=== PATIENT | female | born 1955 | race African-American/Black ===

== ENCOUNTER 2025-03-02 11:13 | Outpatient (CLI) | payer OTHER ==
[2025-03-02 12:30] LABS: Urine Protein, UAD Negative (Negative)
[2025-03-02 12:40] LABS: Hematocrit 37.7 % (36.0-46.0); Hemoglobin 12.5 g/dL (12.2-16.2); Mean Corpuscular Hemoglobin 26.8 pg (28.0-32.0); Mean Corpuscular Volume 80.9 fL (80.0-100.0); Nucleated Red Blood Cells % 0.1 %
[2025-03-02 12:46] LABS: Alanine Aminotransferase 18 U/L (7-40); Albumin 4.6 g/dL (3.2-4.8); Alkaline Phosphatase 75 U/L (46-116); Anion Gap 10 (5-15); BUN/Creatinine Ratio 9.1 (10.0-20.0); Calcium 9.4 mg/dL (8.7-10.4); Carbon Dioxide 27 mmol/L (20-31); Chloride 106 mmol/L (98-107); Glucose 87 mg/dL (74-106); Potassium 4.1 mmol/L (3.5-5.1); Sodium 143 mmol/L (136-145); Total Protein 7.8 g/dL (5.7-8.2)
[2025-03-02 12:47] LABS: Bilirubin, Total 0.5 mg/dL (0.2-1.0)
[2025-03-02 12:48] LABS: Blood Urea Nitrogen 9 mg/dL (9-23)
[2025-03-02 14:21] LABS: Triglycerides 140 mg/dL (< 150)
[2025-03-02 14:22] LABS: HDL Cholesterol 54 mg/dL (40-59)
[2025-03-02 14:25] LABS: Cholesterol 290 mg/dL (< 200)
== END 2025-03-02 17:00 | disposition home or self-care (01) ==
LOC: LAB 11:13
PROVIDERS: ATTEND Internal Medicine Hematology & Oncology
DX: I10 Essential (primary) hypertension (principal); E78.5 Hyperlipidemia, unspecified
CPT/HCPCS: 36415; 80053; 80061; 81001; 82306; 83036; 84443; 85025

== ENCOUNTER 2025-04-16 10:36 | Inpatient (IN) | payer OTHER ==
[~2025-04-16] VITALS: Ht 170.2 cm; Wt 71.9 kg
[2025-04-16 13:29] LABS: Hemoglobin 11.9 g/dL (12.2-16.2); Nucleated Red Blood Cells % 0.0 %
[2025-04-16 13:30] LABS: Hematocrit 36.8 % (36.0-46.0); Mean Corpuscular Hemoglobin 26.0 pg (28.0-32.0); Mean Corpuscular Volume 80.8 fL (80.0-100.0)
[2025-04-16 13:38] LABS: Chloride 104 mmol/L (98-107); Potassium 3.8 mmol/L (3.5-5.1); Sodium 139 mmol/L (136-145)
[2025-04-16 13:39] LABS: Anion Gap 10 (5-15); Carbon Dioxide 25 mmol/L (20-31)
[2025-04-16] MEDS: MORPHINE SULFATE 4 MG/ML SYR/VIAL IV ONE (13:39)
[2025-04-16 13:40] LABS: Calcium 9.4 mg/dL (8.7-10.4)
[2025-04-16] MEDS: ONDANSETRON HCL 4 MG/2 ML VIAL IV ONE (13:40)
[2025-04-16] MEDS: SODIUM CHLORIDE 0.9% 1,000 ML IV ONE (13:40)
[2025-04-16 13:44] LABS: BUN/Creatinine Ratio 9.2 (10.0-20.0); Blood Urea Nitrogen 9 mg/dL (9-23); Glucose 92 mg/dL (74-106)
--- NOTE | 2025-04-16 14:33 | ED.PDOC ---
History of Present Illness HPI Comments 69-year-old female presents with chief complaint of nonradiating, LLQ abdominal pain and constipation x2 weeks. Patient reports pain being constant. She states on having, occasional, bowel movements but has been straining and producing small stools. Additional onset of nausea vomiting, last night, reported. No endorse recent prior ailments, sick contacts, travel, or further acute symptoms. Chief Complaint: Constipation Time Seen by MD: 12:30 Primary Care Provider: BACK PAIN Reviewed Notes: Nurses Notes, Medications, Allergies Allergies: Coded Allergies: NO KNOWN ALLERGIES (Unverified , 12/22/15) Information Source: Patient Mode of Arrival: Ambulatory Severity: Moderate Timing: Weeks Duration: Since onset Prehospital treatment: None Past Medical History PAST MEDICAL HISTORY: Denies Surgical History: Denies all surgeries SPRAYER MACHINE History: No Pertinent SPRAYER MACHINE History Family History Family History: Unknown Social History Smoker: Non-Smoker Alcohol: Denies ETOH Use Drugs: Denies Drug Use Lives In: Home All Other Systems: Reviewed and Negative (Comprehensive review of systems are negative unless otherwise stated in HPI) Physical Exam General Appearance: No Apparent Distress, Normal HEENT: Normal ENT Inspection, Pharynx Normal, TMs Normal Neck: Full Range of Motion, Non-Tender, Normal, Normal Inspection Respiratory: Chest Non-Tender, Lungs Clear, No Accessory Muscle Use, No Res piratory Distress, Normal Breath Sounds Cardiovascular: No Edema, No JVD, No Murmur, No Gallop, Normal Peripheral Pulses, Regular Rate/Rhythm Breast Exam: Deferred Gastrointestinal: LLQ (Tenderness), No Organomegaly, Non Tender, No Pulsatile Mass, Normal Bowel Sounds, Soft, Tenderness (LLQ tenderness) Genitalia: Deferred Pelvic: Deferred Rectal: Deferred Extremities: No calf tenderness, Normal capillary refill, Normal inspection, Normal range of motion, Non-tender, No pedal edema Musculoskeletal : Apperance: Normal Neurologic: Alert, inspector chief II-XII nml as Tested, No Motor Deficits, Normal Affect, Normal Mood, No Sensory Deficits Cerebellar Function: Normal Reflexes: Normal Skin: Dry, Normal Color, Warm Lymphatic: No Adenopathy Was a procedure done? Was a procedure done?: No Differential Dx Considerations may include: Constipation, diverticulosis, diverticulitis, ovarian cyst, ovarian torsion, PID, musculoskeletal pain, gastritis, gastroenteritis, viral, dehydration, electrolyte imbalance, among others X-Ray, Labs, Meds, VS Vital Signs Date Time Temp Pulse Resp B/P (MAP) Pulse Ox O2 Delivery O2 Flow Rate FiO2 04/16/25 13:39 90 16 141/72 04/16/25 10:38 98.1 98 18 136/87 98 98.1 Lab Test 04/16/25 13:08 Range/Units White Blood Count 10.4 4.4-10.8 10^3/uL Red Blood Count 4.55 4.0-5.20 10^6/uL Hemoglobin 11.9 L 12.2-16.2 g/dL Hematocrit 36.8 36.0-46.0 % Mean Corpuscular Volume 80.8 80.0-100.0 fL Mean Corpuscular Hemoglobin 26.0 L 28.0-32.0 pg Mean Corpuscular Hemoglobin Concent 32.2 32.0-36.0 g/dL Red Cell Distribution Width 14.5 H 11.8-14.3 % Platelet Count 433 140-450 10^3/uL Mean Platelet Volume 7.2 6.9-10.8 fL Neutrophils (%) (Auto) 77.3 37.0-80.0 % Lymphocytes (%) (Auto) 16.0 10.0-50.0 % Monocytes (%) (Auto) 5.7 0.0-12.0 % Eosinophils (%) (Auto) 0.5 0.0-7.0 % Basophils (%) (Auto) 0.5 0.0-2.0 % Neutrophils # (Auto) 8.0 1.6-8.6 10 ^3/uL Lymphocytes # (Auto) 1.7 0.4-5.4 10 ^3/uL Monocytes # (Auto) 0.6 0-1.3 10 ^3/uL Eosinophils # (Auto) 0.1 0-0.8 10 ^3/uL Basophils # (Auto) 0 0-0.2 10 ^3/uL Nucleated Red Blood Cells 0.0 % Sodium Level 139 136-145 mmol/L Potassium Level 3.8 3.5-5.1 mmol/L Chloride Level 104 98-107 mmol/L Carbon Dioxide Level 25 20-31 mmol/L Anion Gap 10 5-15 Blood Urea Nitrogen 9 9-23 mg/dL Creatinine 0.98 0.550-1.02 mg/dL Glomerular Filtration Rate Calc 62 >90 mL/min BUN/Creatinine Ratio 9.2 L 10.0-20.0 Serum Glucose 92 74-106 mg/dL Calcium Level 9.4 8.7-10.4 mg/dL Current Medications Medications (Trade) Dose Ordered Sig/Abilio Route Start Time Stop Time Status Last Admin Sodium Chloride 1,000 ml @ 1,000 mls/hr Q1H ONCE IV 04/16/25 12:45 04/16/25 13:44 DC 04/16/25 13:40 Ondansetron HCl (Zofran) 4 mg ONCE ONCE IV 04/16/25 12:45 04/16/25 12:46 DC 04/16/25 13:40 Morphine Sulfate 4 mg ONCE ONCE IV 04/16/25 12:45 04/16/25 12:46 DC 04/16/25 13:39 Time of 1ST Reevaluation: 13:00 Reevaluation 1ST: Unchanged Patient Education/Counseling: Diagnosis, Treatment, Need For Follow Up Family Education/Counseling: No Family Present Additional Information Additional historians: None Previous medical visits reviewed: None Additional imaging reviewed: CT abdomen pelvis with IV contrast Labs ordered: CT abdomen pelvis with IV contrast, UA, CBC, BMP SEPSIS Sepsis Screen Date sepsis recognized/suspect: Apr 16, 2025 Time Sepsis recognized/suspect: 1041 Recent Procedure: No On Antibiotic Therapy: No Respiratory Rate >20: No Heart Rate >90: No Temp<36 C (96.8 F) or >38.3 C: No SBP <90 or MAP <65 mmHG: No New Acute Mental Status Change: No Is the patient on CPAP, BIPAP,: No Physician Orders Urinalysis (04/16/25 12:37) Ct Ab Pel With Iv Con Only (04/16/25 12:37) Cefazolin Ancef (04/16/25 15:45) Metronidazole Ivpb Flagyl (04/16/25 15:45) Vital Signs Date Time Temp Pulse Resp B/P (MAP) Pulse Ox O2 Delivery O2 Flow Rate FiO2 04/16/25 13:39 90 16 141/72 04/16/25 10:38 98.1 98 18 136/87 98 98.1 Laboratory Tests Test 04/16/25 13:08 White Blood Count 10.4 10^3/uL (4.4-10.8) Medications Medications Dose Ordered Sig/Abilio Route Start Time Stop Time Status Last Admin Dose Admin Morphine Sulfate 4 mg ONCE ONCE IV 04/16/25 12:45 04/16/25 12:46 DC 04/16/25 13:39 Ondansetron HCl 4 mg ONCE ONCE IV 04/16/25 12:45 04/16/25 12:46 DC 04/16/25 13:40 Sodium Chloride 1,000 ml @ 1,000 mls/hr Q1H ONCE IV 04/16/25 12:45 04/16/25 13:44 DC 04/16/25 13:40 Departure 1 Departure Time of Disposition: 15:45 (Patient presented with abdominal pain that was concerning for possible appendicits, gastritis, cholecystitis, colitis, gastroenteritis, sbo, or orther possible surgical emergency. Data: 1. I ordered and reviewed the result of at least 3 labs including a CBC, BMP, and Urinalysis. 2. I independently interpreted the following tests: CT Abdomen and Pelvis is concerning for acute diverticulitis .Risk:This patient has a high risk of morbidity due to further diagnostic testing or treatment and may suffer from an acute abdominal process disorder. Workup reveals acute diverticulitis and patient should be admitted for further workup. and possible expert consultation. ) Impression: Primary Impression: Acute diverticulitis Additional Impression: Intractable abdominal pain Disposition: ADMITTED INPATIENT Admit to: Med Surg Condition: Guarded Critical Care Note Critical Care Time?: Yes Critical care comment: Intractable abdominal pain Authorized and Performed by: Francie West MD Total critical care time: Approximately 39 minutes Due to a high probability of clinically significant, life threatening deterioration, the patient required my highest level of preparedness to intervene emergently and I personally spent this critical care time directly and personally managing the patient. This critical care time included obtaining a history; examining the patient; pulse oximetry; ordering and review of studies; arranging urgent treatment with development of a management plan; evaluation of patient's response to treatment; frequent reassessment; and, discussions with other providers. This critical care time was performed to assess and manage the high probability of imminent, life-threatening deterioration that could result in multi-organ failure. It was exclusive of separately billable procedures and treating other patients and teaching time. Please see my other sections and the rest of the note for further information on patient assessment and treatment. Stability Stability form required: No Heart Score Heart Score: Heart Score Response (Comments) Value History N/A 0 EKG N/A 0 Age N/A 0 Risk Factors N/A 0 Troponin N/A 0 Total 0 I personally scribed for FRANCIE WEST MD ([email or web address]) on 04/16/25 at 14:33. Electronically submitted by Gen Muñoz ([email or web address]). FRANCIE WEST MD Apr 16, 2025 14:33
--- NOTE | 2025-04-16 15:39 | DVH ---
EXAM: CT CT AB PEL WITH IV CON ONLY HISTORY: llq abdominal pain TECHNIQUE: Volumetric multidetector CT images of the abdomen and pelvis were obtained after the administration of intravenous contrast. All CT scans at this facility use dose modulation, iterative reconstruction, and/or weight based dosing when appropriate to reduce radiation dose to as low as reasonably achievable. COMPARISON: None FINDINGS: [LOWER CHEST]: The partially visualized lung bases are clear without a pleural effusion. [LIVER]: Small amount of fatty infiltration along the falciform ligament. [GALLBLADDER AND BILIARY TREE]: No cholelithiasis. [SPLEEN]: Unremarkable. [PANCREAS]: Unremarkable. [ADRENAL GLANDS]: Unremarkable [KIDNEYS]: No hydronephrosis. No nephroureterolithiasis. [BLADDER]: Unremarkable for the degree distention. [REPRODUCTIVE ORGANS]: Unremarkable. [BOWEL/MESENTERY]: Stomach is normal. No CT evidence of bowel obstruction. normal appendix inflammatory stranding in association with diverticula along the anti mesenteric margin of the sigmoid flexure. Condyle colitis imaging findings compatible with diverticulitis. [ASCITES]: Small volume pelvic ascites [LYMPHADENOPATHY]: No pathologically enlarged lymph nodes by CT size criteria [VASCULATURE]: No aneurysmal dilatation. [ABDOMINAL WALL]: Unremarkable. [MUSCULOSKELETAL]: No acute fracture or aggressive focal osseous lesion. Multifocal degenerative change of the visualized spine. IMPRESSION: 1. Acute uncomplicated sigmoid diverticulitis. 2. Small volume pelvic ascites.
[2025-04-16] MEDS: ceFAZolin 2 GM/D5W50ml 50 ML IV ONE (16:29)
[2025-04-16] MEDS: IOHEXOL 300 MG/ML 100ML BOTTLE IJ ONE (16:30)
[2025-04-16 22:56] LABS: Urine Protein, UAD TRACE (Negative)
[2025-04-16] MEDS ORDERED: MORPHINE SULFATE INJ 2 MG/ml SYRG IV PRN (23:30)
[2025-04-16] MEDS ORDERED: NITROGLYCERIN 0.4 MG SL TAB SL PRN (23:30)
--- NOTE | 2025-04-17 00:59 | DVHHPRES ---
History of Present Illness Resident Creating Document: TIERA DYER RESIDENT Reason for Visit: left lower quadrant abdominal pain, constipation, nausea/vomiting History of Present Illness Patient is a 69-year-old female presenting from home to the ED with constant, non-radiating left lower quadrant (LLQ) abdominal pain and constipation for approximately 2 weeks, now found on CT to have acute uncomplicated sigmoid diverticulitis. She reports that the pain began about 2 weeks ago (though she also mentions vague stomach pains over ~2 months), localized mainly to the LLQ, sometimes spreading across the lower abdomen. Pain is described as cramping/pressure-like, rated about 8/10 at its worst. It tends to worsen when her stomach growls or when she tries to pass gas or have a bowel movement. No clear relief with eating, bowel movements, or urination. No radiation to groin, chest, or back, although she has some chronic lower back/hip discomfort. She reports constipation with straining and small, incomplete stools over the last two weeks. She continues to have intermittent bowel movements but they are difficult to pass and not right. She endorses dark, possibly black/tarry stool and some mucus, but denies bright red blood in the stool. She is still able to pass gas. She reports nausea and vomiting starting last night, with multiple episodes of emesis and gagging that prevented sleep. No hematemesis. She reports chills but no documented fever. She notes unintentional weight loss from approximately 165 lb to 157 lb over the last couple of months. She does not feel like her appetite has dramatically decreased, but intake has been somewhat reduced due to pain and nausea. She denies prior episodes of pain like this and has no known history of diverticulitis. She had a colonoscopy about 10 years ago, reportedly normal. No history of GI bleeding, IBD, or peptic ulcer disease. No recent travel, sick contacts, or antibiotic use. No trauma. In the ED, she was found to have LLQ tenderness without peritoneal signs, with normal hemodynamics. CT abdomen/pelvis with IV contrast showed acute uncomplicated sigmoid diverticulitis with small volume pelvic ascites and inflammatory changes compatible with diverticulitis; no abscess, free air, or bowel obstruction reported. Labs revealed normal WBC, Hgb 11.9 g/dL (low) with low MCH (26.0), elevated RDW (14.5), and thrombocytosis (Plt 433K) suggestive of early/mild microcytic/iron-deficiency pattern vs. anemia of inflammation. She also reports intermittent palpitationsbut denies chest pain, barby dyspnea, syncope, or known cardiac history. Given her age, persistent LLQ pain, inability to tolerate PO well, dark stools, mild anemia, and need for IV antibiotics and close monitoring, decision made to admit to inpatient medicine ([facility] with telemetry) for management of acute uncomplicated sigmoid diverticulitis, evaluation of possible occult GI bleed / iron-deficiency anemia, and optimization of bowel regimen and hydration. Past Medical History No significant medical history Past Surgical History Denies any prior surgeries (including abdominal, pelvic, or gynecologic surgery) Family History * Denies family history of: * Colorectal cancer * Inflammatory bowel disease * Gynecologic cancers (ovarian, uterine) Past Social History * Lives at home, independent in ADLs. * Tobacco: Never smoker. * Alcohol: Social drinking (no clear history of heavy use reported). * Illicit drugs: Denies. * Diet: High intake of red meat (beef); suboptimal fiber intake though she does eat some vegetables. * No recent travel or known infectious exposures. Review of Systems Review of Systems Constitutional: Positive for chills, mild unintentional weight loss (~8 lb). No documented fever, no night sweats. HEENT: No headache, visual changes, sore throat. Cardiovascular: Positive for palpitations. Denies chest pain, orthopnea, PND, or leg swelling. Respiratory: Denies shortness of breath, cough, wheezing, hemoptysis. Positive LLQ abdominal pain, constipation, nausea, vomiting, dark/tarry stools, mucus in stool, bloating. Denies hematemesis, barby hematochezia, or severe distension. : Denies dysuria, frequency, urgency, hematuria, flank pain. BREADMAN: Postmenopausal, no vaginal bleeding, no discharge, no pelvic pain with intercourse. Neuro: Denies focal weakness, numbness, speech difficulty, vision loss, or syncope. MSK: Chronic hip and lower back discomfort, knee pain with prolonged sitting; no acute joint swelling or erythema. Skin: No rash, no jaundice, no new lesions. Psych: No reported depression, anxiety, or suicidal ideation. Allergies: Coded Allergies: NO KNOWN ALLERGIES (Unverified , 12/22/15) Medications Current Medications Medications Dose Ordered Sig/Abilio Route Start Time Stop Time Status Last Admin Dose Admin Nitroglycerin 0.4 mg Q5MINP PRN SL 04/16/25 23:30 Morphine Sulfate 2 mg Q30M PRN IV 04/16/25 23:30 Sodium Chloride 1,000 ml @ 100 mls/hr Q10H IV 04/17/25 01:00 UNV Acetaminophen/ Hydrocodone Bitart 1 tab Q4HP PRN PO 04/17/25 01:00 UNV Ondansetron HCl 4 mg Q4HP PRN IV 04/17/25 01:00 UNV Enoxaparin Sodium 40 mg DAILY SC 04/17/25 10:00 UNV Acetaminophen 650 mg Q6HP PRN PO 04/17/25 01:00 UNV Morphine Sulfate 2 mg Q4HPRN PRN IV 04/17/25 01:00 UNV Ceftriaxone Sodium 50 ml @ 100 mls/hr DAILY@09 IV 04/17/25 09:00 UNV Metronidazole 100 ml @ 100 mls/hr Q8HR IV 04/17/25 06:00 UNV Docusate Sodium 100 mg BID PO 04/17/25 10:00 UNV Pantoprazole Sodium 40 mg DAILY IV 04/17/25 10:00 UNV Exam Vital Signs Vital Signs Date Time Temp Pulse Resp B/P (MAP) Pulse Ox O2 Delivery O2 Flow Rate FiO2 04/16/25 21:10 97.9 73 20 115/64 (81) 96 97.9 04/16/25 21:10 Room Air Exam General:?Alert, oriented 3, speaking in full sentences, mild distress from abdominal pain but nontoxic-appearing. HEENT:?NC/AT, PERRL, anicteric sclera, no conjunctival pallor noted on gross exam, oropharynx clear, mucous membranes slightly dry. Neck:?Supple, no lymphadenopathy, trachea midline, no JVD. Cardiovascular:?Regular rate and rhythm, S1/S2 normal, no murmurs/rubs/gallops. No peripheral edema. Peripheral pulses 2+ bilaterally. Respiratory:?Lungs clear to auscultation bilaterally, no wheezes, rales, or rhonchi. Normal respiratory effort. Abdomen:?Soft, localized tenderness in the left lower quadrant > mild diffuse lower abdominal tenderness.?No rebound tenderness or guarding. No rigidity. No palpable masses. No hepatosplenomegaly. Bowel sounds present and normoactive. No palpable pulsatile abdominal mass. Rectal:?(Guaiac test ordered/pending.) Extremities:?No clubbing, cyanosis, or edema. Full range of motion; mild chronic hip/knee discomfort reported. Neuro:?AAOx3, cranial nerves grossly intact, no focal motor or sensory deficits noted. Skin:?Warm, dry; no rash, no jaundice, no petechiae. Labs/Xrays Labs Test 04/16/25 21:30 04/16/25 13:08 Range/Units Urine Color Yellow Yellow Urine Clarity Clear Clear Urine pH 5.5 5.0-9.0 Urine Specific [place] > 1.050 H 1.001-1.035 Urine Protein Trace H Negative Urine Ketones 1+ H Negative Urine Blood Negative Negative /uL Urine Nitrite Negative Negative Urine Bilirubin Negative Negative Urine Urobilinogen Normal Negative mg/dL Urine Leukocyte Esterase Negative Negative /uL Urine RBC 8 0 - 4 /hpf Urine Microscopic WBC 1 0-5 /HPF Urine Squamous Epithelial Cells Few <5 /hpf Urine Bacteria None seen None Seen /hpf Urine Mucus Few None Seen Urine Glucose Normal Normal mg/dL White Blood Count 10.4 4.4-10.8 10^3/uL Red Blood Count 4.55 4.0-5.20 10^6/uL Hemoglobin 11.9 L 12.2-16.2 g/dL Hematocrit 36.8 36.0-46.0 % Mean Corpuscular Volume 80.8 80.0-100.0 fL Mean Corpuscular Hemoglobin 26.0 L 28.0-32.0 pg Mean Corpuscular Hemoglobin Concent 32.2 32.0-36.0 g/dL Red Cell Distribution Width 14.5 H 11.8-14.3 % Platelet Count 433 140-450 10^3/uL Mean Platelet Volume 7.2 6.9-10.8 fL Neutrophils (%) (Auto) 77.3 37.0-80.0 % Lymphocytes (%) (Auto) 16.0 10.0-50.0 % Monocytes (%) (Auto) 5.7 0.0-12.0 % Eosinophils (%) (Auto) 0.5 0.0-7.0 % Basophils (%) (Auto) 0.5 0.0-2.0 % Neutrophils # (Auto) 8.0 1.6-8.6 10 ^3/uL Lymphocytes # (Auto) 1.7 0.4-5.4 10 ^3/uL Monocytes # (Auto) 0.6 0-1.3 10 ^3/uL Eosinophils # (Auto) 0.1 0-0.8 10 ^3/uL Basophils # (Auto) 0 0-0.2 10 ^3/uL Nucleated Red Blood Cells 0.0 % Sodium Level 139 136-145 mmol/L Potassium Level 3.8 3.5-5.1 mmol/L Chloride Level 104 98-107 mmol/L Carbon Dioxide Level 25 20-31 mmol/L Anion Gap 10 5-15 Blood Urea Nitrogen 9 9-23 mg/dL Creatinine 0.98 0.550-1.02 mg/dL Glomerular Filtration Rate Calc 62 >90 mL/min BUN/Creatinine Ratio 9.2 L 10.0-20.0 Serum Glucose 92 74-106 mg/dL Calcium Level 9.4 8.7-10.4 mg/dL SEPSIS Sepsis Screen Date sepsis recognized/suspect: Apr 16, 2025 Time Sepsis recognized/suspect: 2112 Recent Procedure: No On Antibiotic Therapy: No Respiratory Rate >20: No Heart Rate >90: No Temp<36 C (96.8 F) or >38.3 C: No SBP <90 or MAP <65 mmHG: No New Acute Mental Status Change: No Is the patient on CPAP, BIPAP,: No Physician Orders Code Status (04/16/25 23:26) Vital Signs .PER UNIT PROTOCOL (04/16/25 23:26) Review Orders With Adm. (04/16/25 23:26) Npo (Nothing By Mouth) Diet (04/17/25 Breakfast) Notify Md Of Changes From Base (04/16/25 23:26) Advance Directive (04/16/25 23:26) Patient Condition (04/16/25 23:26) Allergies (04/16/25 23:26) Nitroglycerin Sublingual (Ntrostat Subli (04/16/25 23:30) Morphine Sulfate Injection (04/16/25 23:30) Oxygen By Nasal Cannula (04/16/25 23:26) Stat Ekg For Chest Pain (04/16/25 23:26) Notify Of Changes From Base (04/16/25 23:26) Automobile Radio Repairer For 24 Hours (04/16/25 23:26) Emergency Dysrhythmia Protocol (04/16/25 23:26) Rhythm Strips Once Every Shift (04/16/25 23:26) Admit (04/17/25 00:45) Sodium Chloride 0.9% (04/17/25 01:00) Oxygen Per Hour (04/17/25 00:46) Hydrocodone-Acet 5/325mg Tab ([place] 5/32 (04/17/25 01:00) Ondansetron Hcl (Zofran) (04/17/25 01:00) Enoxaparin Sodium (Lovenox) (04/17/25 10:00) Complete Blood Count (04/18/25 04:00) Comprehensive Metabolic Panel (04/18/25 04:00) Acetaminophen Tablet (Tylenol Tablet) (04/17/25 01:00) Morphine Sulfate Injection (04/17/25 01:00) Ceftriaxone 1gm/50ml (Rocephin) (04/17/25 09:00) Metronidazole 500mg/100ml (Flagyl 500mg/ (04/17/25 06:00) Iron Panel (04/17/25 00:46) Ferritin (04/17/25 00:46) Stool Occult Blood (04/17/25 00:46) Hemoglobin & Hematocrit (04/17/25 00:46) Docusate Sodium Capsule (Colace Capsule) (04/17/25 10:00) Magnesium (04/17/25 00:46) Electrocardigram (04/17/25 00:46) Pantoprazole (Protonix) (04/17/25 10:00) Sequential Compression Device (04/17/25 00:55) Thyroid Stimulating Hormone (04/17/25 00:55) Vitamin B12 (04/17/25 00:55) Folate (Folic Acid) (04/17/25 00:55) Vital Signs Date Time Temp Pulse Resp B/P (MAP) Pulse Ox O2 Delivery O2 Flow Rate FiO2 04/16/25 21:10 97.9 73 20 115/64 (81) 96 97.9 04/16/25 21:10 73 20 96 Room Air Laboratory Tests Test 04/16/25 13:08 White Blood Count 10.4 10^3/uL (4.4-10.8) Medications Medications Dose Ordered Sig/Abilio Route Start Time Stop Time Status Last Admin Dose Admin Cefazolin Sodium/ Dextrose 50 ml @ 50 mls/hr ONCE ONCE IV 04/16/25 15:45 04/16/25 16:44 DC 04/16/25 16:29 50 MLS/HR Metronidazole 100 ml @ 100 mls/hr ONCE ONCE IV 04/16/25 15:45 04/16/25 16:44 DC 04/16/25 16:29 100 MLS/HR Assessment/Plan Assessment/Plan ASSESSMENT Acute sigmoid diverticulitis anemia, likely early microcytic / iron-deficiency anemia vs anemia of inflammation * Hgb 11.9 (slightly low), low MCH, high RDW, thrombocytosis, dark stools, age 69. * Possible chronic occult GI blood loss vs chronic disease. No evidence yet of acute blood loss anemia. * Needs iron studies, FOBT, and colonoscopic evaluation. Dark stools possible occult GI bleed (rule-out melena) * Symptom likely secondary to GI pathology (diverticular disease vs other lesion). * Will evaluate with FOBT, trend CBC, consider GI consult if Hgb drops or overt bleeding appears. * Not coded as principal diagnosis; symptom attributed to suspected GI source. Constipation * Likely multifactorial: low fiber diet, diverticular inflammation, decreased activity, possible dehydration. * Symptom attributable to diverticular disease and diet; will treat with bowel regimen once acute pain controlled and diet advanced. Small volume pelvic ascites likely reactive inflammatory ascites * CT shows a small volume; no cirrhosis history, no stigmata of portal hypertension. * Likely reactive to intra-abdominal inflammation. Will monitor; no par acentesis indicated currently. Thrombocytosis likely reactive Platelets 433K; likely secondary to inflammation/iron deficiency. * Monitor platelet trend; no thrombosis symptoms at present. Palpitations suspected benign arrhythmia / sinus tachycardia vs occult arrhythmia * Intermittent subjective palpitations without chest pain or syncope. * Requires ECG and telemetry monitoring on admission; correct electrolytes as needed. PLAN 1. Acute Uncomplicated Sigmoid Diverticulitis * Admit to inpatient medicine, medsurg floor with telemetry (due to age + palpitations). * Diet: * Begin NPO * Advance to clear - full liquids / low-fiber diet as pain and nausea improve. * IV Fluids: * Start NS or LR at ~45684 mL/hr, adjust for age, cardiac status, and urine output. * Strict I/O monitoring. * Antibiotics: * If no beta-lactam allergy: * Ceftriaxone 12 g IV q24h + Metronidazole 500 mg IV q8h * Reassess antibiotic need daily; total duration typically 47 days dep ending on clinical response. * Pain control: * Acetaminophen PO/IV scheduled or PRN (dose adjusted for age/liver status). * Avoid NSAIDs (risk of GI bleeding, kidney injury). * Low-dose opioids (e.g., oxycodone or IV morphine) PRN for severe pain * Antiemetics: * Ondansetron 4 mg IV/PO q68h PRN nausea/vomiting. * Monitoring: * Vital signs q4h. * Serial abdominal exams at least q8h. * Daily CBC, CMP x 23 days or as needed. * Watch for fever, tachycardia, hypotension, peritonitis, inability to tolerate PO ? escalate / consider surgery. * Consults: * Surgery consult if clinical status worsens (fever, rising WBC, peritonitis, abscess, obstruction, or failure of medical therapy). 2. Mild Anemia with Possible Early Iron-Deficiency vs Anemia of Chronic Disease Plan: * Labs to order: * Iron panel: serum iron, ferritin, TIBC, transferrin saturation. * Peripheral smear if indicated. * Repeat CBC daily to monitor trend. * GI evaluation: * FOBT (guaiac) on stool. * Plan outpatient colonoscopy 68 weeks after resolution of acute diverticulitis to evaluate for malignancy, polyps, or chronic blood loss source. * Consider EGD later if iron deficiency confirmed and colonoscopy unrevealing. * Transfusion: * Not indicated currently (Hgb 11.9). * Set transfusion threshold <7 g/dL or symptomatic anemia per hospital protocol. 3. Dark Stools Possible Occult GI Bleeding (Rule-Out Melena) Plan: * FOBT as above. * Monitor H/H daily, watch for drop suggesting active bleed. * Monitor vital signs for hemodynamic instability. * If Hgb drops or stool clearly melena/hematochezia ? early GI consult, consider inpatient colonoscopy/EGD. 4. Constipation Plan: * Once acute pain controlled and vomiting improved: * Initiate stool softener: docusate. * Encourage ambulation, hydration, and later high-fiber diet after resolution of acute diverticulitis (to avoid acute exacerbation). 5. Small Volume Pelvic Ascites Likely Reactive Plan: * No acute intervention required; no clinical signs of portal hypertension or chronic liver disease. * Monitor clinically for worsening abdominal distension, pain, or signs of peritonitis. * Re-image only if clinical status deteriorates. 6. Thrombocytosis (Reactive) Plan: * Monitor platelet counts with serial CBCs. * Treat underlying inflammation and possible iron deficiency. * No antiplatelet therapy needed solely for reactive thrombocytosis; DVT prophylaxis still indicated (see below). 7. Palpitations Plan: * 12-lead ECG on admission. * Place patient on telemetry for at least 2448 hours to monitor for arrhythmia (AFib, SVT, etc.). * Check and correct electrolytes (K, Mg, Ca). * If clinically significant arrhythmia or concerning ECG changes, consider cardiology consult. 8. Risk of Volume Depletion / Dehydration Plan: * Manage with IV fluids as above. * Strict I/O, daily weights. * Monitor renal function (BUN/Cr) and electrolytes daily. * No current evidence of PEPPER; documented as No PEPPER renal function within normal limits, will monitor. 9. Nutrition / Lifestyle Plan: * Once improved, advance diet and provide education on high-fiber diet, adequate hydration, and reduction of high red meat intake. * Consider nutrition consult if poor oral intake or weight continues to decline. PROPHYLAXIS & SAFETY MEASURES 1. DVT Prophylaxis: SCD 1. GI Prophylaxis: * Consider Pantoprazole 40 mg IV/PO daily, 2. Fall Precautions: * Bed alarm if high risk, assist with ambulation, proper lighting, call brock within reach. 3. Pressure Ulcer Prevention: * Repositioning, pressure-relieving mattress if needed. 4. Aspiration Precautions: * Elevate HOB ?30 during and after meals; careful with emesis and sedation. Case discussed in detail with the attending physician, including the clinical presentation, diagnostic workup, and comprehensive management plan. The patient was present for the discussion and demonstrated understanding of her condition and the proposed plan. Patient verbally consented to hospital admission and agreed to the outlined evaluation and treatment strategies, including imaging, labs, medication initiation, specialist consultations, and supportive care. Plan discussed with: Patient My Orders Orders - TIERA DYER RESIDENT Procedure Category Date Status Time Code Status CODE 04/16/25 Transmitted 23:26 Vital Signs CARRIE 04/16/25 In Process 23:26 Review Orders With CARRIE 04/16/25 In Process Adm. 23:26 Npo (Nothing By DIET 04/17/25 Transmitted Mouth) Diet Breakfast Notify Md Of Changes [facility] 04/16/25 In Process From Base 23:26 Advance Directive CARRIE 04/16/25 In Process 23:26 Patient Condition ORDERS 04/16/25 Transmitted 23:26 Allergies CARRIE 04/16/25 In Process 23:26 Nitroglycerin PHA 04/16/25 In Process Sublingual (Ntrostat 23:30 Morphine Sulfate PHA 04/16/25 In Process Injection 23:30 Oxygen By Nasal RT 04/16/25 Transmitted Cannula 23:26 Stat Ekg For Chest CARRIE 04/16/25 In Process Pain 23:26 Notify Md Of Changes [facility] 04/16/25 In Process From Base 23:26 Automobile Radio Repairer For [facility] 04/16/25 In Process 24 Hours 23:26 Emergency Dysrhythmia [facility] 04/16/25 In Process Protocol 23:26 Rhythm Strips Once [facility] 04/16/25 In Process Every Shift 23:26 Admit ADMIT 04/17/25 Transmitted 00:45 Sodium Chloride 0.9% PHA 04/17/25 Logged 01:00 Oxygen Per Hour RT 04/17/25 Transmitted 00:46 Hydrocodone-Acet PHA 04/17/25 Logged 5/325mg Tab ([place] 01:00 Ondansetron Hcl PHA 04/17/25 Logged (Zofran) 01:00 Enoxaparin Sodium PHA 04/17/25 Logged (Lovenox) 10:00 Complete Blood Count LAB 04/18/25 Verified 04:00 Comprehensive LAB 04/18/25 Verified Metabolic Panel 04:00 Acetaminophen Tablet PHA 04/17/25 Logged (Tylenol Tablet) 01:00 Morphine Sulfate PHA 04/17/25 Logged Injection 01:00 Ceftriaxone 1gm/50ml PHA 04/17/25 Logged (Rocephin) 09:00 Metronidazole PHA 04/17/25 Logged 500mg/100ml (Flagyl 06:00 Iron Panel LAB 04/17/25 Logged 00:46 Ferritin LAB 04/17/25 Logged 00:46 Stool Occult Blood LAB 04/17/25 Logged 00:46 Hemoglobin & LAB 04/17/25 Logged Hematocrit 00:46 Docusate Sodium PHA 04/17/25 Logged Capsule (Colace 10:00 Magnesium LAB 04/17/25 Logged 00:46 Electrocardigram EKG 04/17/25 Logged 00:46 Pantoprazole PHA 04/17/25 Logged (Protonix) 10:00 Sequential CARRIE 04/17/25 Transmitted Compression Device 00:55 Thyroid Stimulating LAB 04/17/25 Transmitted Hormone 00:55 Vitamin B12 LAB 04/17/25 Transmitted 00:55 Folate (Folic Acid) LAB 04/17/25 Transmitted 00:55 Date of Service: Apr 16, 2025 Billing Provider: WAQAR BRITO MD Common Visit Codes: [id number] INP/OBS CARE (HIGH) Secondary Visit Codes: [id number] CARE PLAN 30 MINUTES TIERA DYER RESIDENT Apr 17, 2025 00:59
[2025-04-17] MEDS ORDERED: ACETAMINOPHEN 325 MG TAB PO PRN (01:00)
[2025-04-17] MEDS ORDERED: ONDANSETRON HCL 4 MG/2 ML VIAL IV PRN (01:00)
[2025-04-17] MEDS ORDERED: MORPHINE SULFATE INJ 2 MG/ml SYRG IV PRN (01:00)
[2025-04-17 02:04] LABS: Hematocrit 32.5 % (36.0-46.0); Hemoglobin 10.8 g/dL (12.2-16.2)
[2025-04-17] MEDS: SODIUM CHLORIDE 0.9% 1,000 ML IV SCH (02:08)
[2025-04-17] MEDS: HYDROcodone-ACET 5/325MG TAB PO PRN (02:41)
[2025-04-17 02:56] VITALS: BP 115/56; PULSE 64; RESP 14; O2SAT 96
[2025-04-17 03:21] LABS: Total Iron Binding Capacity 269.0 ug/dL (250-425)
[2025-04-17 03:22] LABS: Iron 22.0 ug/dL (50-170)
[2025-04-17 05:00] VITALS: BP 107/44; PULSE 69; RESP 17; TEMP 97.7; O2SAT 96
[2025-04-17 08:00] VITALS: PULSE 59
[2025-04-17 08:27] LABS: Hematocrit 32.8 % (36.0-46.0); Hemoglobin 10.7 g/dL (12.2-16.2); Mean Corpuscular Hemoglobin 26.4 pg (28.0-32.0); Mean Corpuscular Volume 81.0 fL (80.0-100.0); Nucleated Red Blood Cells % 0.3 %
[2025-04-17 08:33] LABS: Alanine Aminotransferase 15 U/L (7-40); Albumin 4.2 g/dL (3.2-4.8); Alkaline Phosphatase 73 U/L (46-116); Anion Gap 13 (5-15); BUN/Creatinine Ratio 12.9 (10.0-20.0); Bilirubin, Total 0.5 mg/dL (0.2-1.0); Blood Urea Nitrogen 12 mg/dL (9-23); Calcium 8.8 mg/dL (8.7-10.4); Carbon Dioxide 24 mmol/L (20-31); Chloride 104 mmol/L (98-107); Glucose 89 mg/dL (74-106); Potassium 4.0 mmol/L (3.5-5.1); Sodium 141 mmol/L (136-145); Total Protein 7.2 g/dL (5.7-8.2)
[2025-04-17 09:00] VITALS: BP 119/70; PULSE 68; RESP 18; TEMP 97.5; O2SAT 97
[2025-04-17] MEDS: PANTOPRAZOLE 40 MG/10 ML VIAL INJ IV SCH (09:25)
[2025-04-17] MEDS: DOCUSATE SOD 100 MG CAP PO SCH (09:26)
[2025-04-17] MEDS ORDERED: ENOXAPARIN SOD 40 MG/0.4 ML SYRINGE SC SCH (10:00)
[2025-04-17] MEDS ORDERED: METR-344 PO (10:34)
[2025-04-17] MEDS ORDERED: LEVO500T91 PO (10:34)
--- NOTE | 2025-04-17 10:38 | DVHDS2 ---
Discharge Summary Date of Admission Apr 16, 2025 at 23:26 Date of Discharge: Apr 17, 2025 Admitting Diagnosis Acute uncomplicated sigmoid diverticulitis Labs/Diagnostic Data: Laboratory Results Test 04/17/25 01:37 04/16/25 21:30 White Blood Count 9.3 10^3/uL (4.4-10.8) Red Blood Count 4.05 10^6/uL (4.0-5.20) Hemoglobin 10.7 g/dL (12.2-16.2) Hematocrit 32.8 % (36.0-46.0) Mean Corpuscular Volume 81.0 fL (80.0-100.0) Mean Corpuscular Hemoglobin 26.4 pg (28.0-32.0) Mean Corpuscular Hemoglobin Concent 32.5 g/dL (32.0-36.0) Red Cell Distribution Width 15.0 % (11.8-14.3) Platelet Count 391 10^3/uL (140-450) Mean Platelet Volume 7.6 fL (6.9-10.8) Neutrophils (%) (Auto) 67.7 % (37.0-80.0) Lymphocytes (%) (Auto) 23.3 % (10.0-50.0) Monocytes (%) (Auto) 6.4 % (0.0-12.0) Eosinophils (%) (Auto) 1.5 % (0.0-7.0) Basophils (%) (Auto) 1.1 % (0.0-2.0) Neutrophils # (Auto) 6.3 10 ^3/uL (1.6-8.6) Lymphocytes # (Auto) 2.2 10 ^3/uL (0.4-5.4) Monocytes # (Auto) 0.6 10 ^3/uL (0-1.3) Eosinophils # (Auto) 0.1 10 ^3/uL (0-0.8) Basophils # (Auto) 0.1 10 ^3/uL (0-0.2) Nucleated Red Blood Cells 0.3 % Sodium Level 141 mmol/L (136-145) Potassium Level 4.0 mmol/L (3.5-5.1) Chloride Level 104 mmol/L (98-107) Carbon Dioxide Level 24 mmol/L (20-31) Anion Gap 13 (5-15) Blood Urea Nitrogen 12 mg/dL (9-23) Creatinine 0.93 mg/dL (0.550-1.02) Glomerular Filtration Rate Calc 67 mL/min (>90) BUN/Creatinine Ratio 12.9 (10.0-20.0) Serum Glucose 89 mg/dL (74-106) Calcium Level 8.8 mg/dL (8.7-10.4) Magnesium Level 2.1 mg/dL (1.6-2.6) Iron Level 22 ug/dL (50-170) Total Iron Binding Capacity 269 ug/dL (250-425) Percent Iron Saturation 8.2 % (15-50) Ferritin 164.2 ng/mL (10-291) Total Bilirubin 0.5 mg/dL (0.2-1.0) Aspartate Amino Transferase (AST) 24 U/L (13-40) Alanine Aminotransferase (ALT) 15 U/L (7-40) Alkaline Phosphatase 73 U/L (46-116) Total Protein 7.2 g/dL (5.7-8.2) Albumin 4.2 g/dL (3.2-4.8) Thyroid Stimulating Hormone (TSH) 0.99 uIU/mL (0.55-4.78) Urine Color Yellow (Yellow) Urine Clarity Clear (Clear) Urine pH 5.5 (5.0-9.0) Urine Specific [place] > 1.050 (1.001-1.035) Urine Protein Trace (Negative) Urine Ketones 1+ (Negative) Urine Blood Negative /uL (Negative) Urine Nitrite Negative (Negative) Urine Bilirubin Negative (Negative) Urine Urobilinogen Normal mg/dL (Negative) Urine Leukocyte Esterase Negative /uL (Negative) Urine RBC 8 /hpf (0 - 4) Urine Microscopic WBC 1 /HPF (0-5) Urine Squamous Epithelial Cells Few /hpf (<5) Urine Bacteria None seen /hpf (None Seen) Urine Mucus Few (None Seen) Urine Glucose Normal mg/dL (Normal) Other Laboratory Tests 04/17/25 01:37 Brief Hx & Hospital Course: Patient is a 69 year old female patient who presented to the hospital with complaints of abdominal pain which has been worsening for the past two weeks. Patient was admitted for acute uncomplicated diverticulitis. Patient was kept NPO treated with Rocephin IV and Flagyl IV. Patient reports her pain has resolved now at this time. CT abdomen and pelvis was done which showed acute uncomplicated diverticulitis and small pelvic free fluid. Patient will be discharged home today with Levaquin p.o. and Flagyl p.o. on a clear liquid diet for 3-5 days and can advance to a full liquid diet for 7-10 days. Patient will need to see Dr. Rowland PCP in 2-3 days, I sent this message over to the patient's PCP. I explained plan of care to the patient. Patient will also need to be seen by teenage program director for outpatient pelvic MRI and a Pap smear. Patient will need an outpatient Colonoscopy to ensure resolution in 6-8 weeks. Operations or Procedures EXAM: CT CT AB PEL WITH IV CON ONLY HISTORY: llq abdominal pain TECHNIQUE: Volumetric multidetector CT images of the abdomen and pelvis were obtained after the administration of intravenous contrast. All CT scans at this facility use dose modulation, iterative reconstruction, and/or weight based dosing when appropriate to reduce radiation dose to as low as reasonably achievable. COMPARISON: None FINDINGS: [LOWER CHEST]: The partially visualized lung bases are clear without a pleural effusion. [LIVER]: Small amount of fatty infiltration along the falciform ligament. [GALLBLADDER AND BILIARY TREE]: No cholelithiasis. [SPLEEN]: Unremarkable. [PANCREAS]: Unremarkable. [ADRENAL GLANDS]: Unremarkable [KIDNEYS]: No hydronephrosis. No nephroureterolithiasis. [BLADDER]: Unremarkable for the degree distention. [REPRODUCTIVE ORGANS]: Unremarkable. [BOWEL/MESENTERY]: Stomach is normal. No CT evidence of bowel obstruction. normal appendix inflammatory stranding in association with diverticula along the anti mesenteric margin of the sigmoid flexure. Condyle colitis imaging findings compatible with diverticulitis. [ASCITES]: Small volume pelvic ascites [LYMPHADENOPATHY]: No pathologically enlarged lymph nodes by CT size criteria [VASCULATURE]: No aneurysmal dilatation. [ABDOMINAL WALL]: Unremarkable. [MUSCULOSKELETAL]: No acute fracture or aggressive focal osseous lesion. Multifocal degenerative change of the visualized spine. IMPRESSION: 1. Acute uncomplicated sigmoid diverticulitis. 2. Small volume pelvic ascites. Condition at Discharge: Stable Final Diagnosis/Problems List Acute uncomplicated sigmoid diverticulitis- DC with PO Abx Pelvic free fluid- Outpatient Pelvic MRI and [employer] for Pap Smear -1-2 weeks Discharge Disposition: Home Discharge Instruct/Medications Diet: See Comment Diet comment: Clear Liquid Activity: Light activity Follow Up/Referral: Dr. Rowland in 2-3 days Medications: see [facility] Scheduled Levofloxacin Hemihydrate (Levaquin 500 Mg), 750 MG PO DAILY Metronidazole (Flagyl), 500 MG PO TID Discharge Statement: "Patient was advised to return to the ER or call 911 if any headaches, dizziness, shortness of breath, chest pain, abdominal pain, bleeding, fevers, or worsening of medical condition. Patient was counseled about treatment plan, medications, possible side effects, patientverbalized understanding. All questions were answered to the best of my ability. This discharge took greater then 30 minutes in planning, reviewing documentation, counseling the patient, and discussing with other team members." ASSESSMENT ASSESSMENT Assessment Date of Service: Apr 17, 2025 Billing Provider: WAQAR BRITO MD Common Visit Codes: 93641-XUQ/OBS DISCH DAY >30min WAQAR BRITO MD Apr 17, 2025 10:38
[2025-04-17 11:47] VITALS: BP 119/70; PULSE 68; RESP 18; TEMP 97.5; O2SAT 97
[2025-04-17 13:00] VITALS: BP 113/54; PULSE 61; RESP 17; TEMP 97.7; O2SAT 97
== END 2025-04-17 15:19 | disposition home or self-care (01) | DRG 392 ==
LOC: ER 10:36 → OVERFLOW 23:26 → TELE-WESTW 04-17 04:00
PROVIDERS: ATTEND Emergency Medicine
DX: K57.32 Diverticulitis of large intestine without perforation or abscess without bleeding (principal); R18.8 Other ascites; D63.8 Anemia in other chronic diseases classified elsewhere; K59.00 Constipation, unspecified; D75.839 Thrombocytosis, unspecified; R00.2 Palpitations; D50.9 Iron deficiency anemia, unspecified; I49.8 Other specified cardiac arrhythmias
CPT/HCPCS: 36415; 74177; 80048; 80053; 81001; 82607; 82728; 82746; 83540; 83550; 83735; 84443; 85014; 85018; 85025; 96361; 96365; 96368; 96375; 99291; G0378; J2405; J2470; J3490

== ENCOUNTER 2025-04-20 14:46 | Outpatient (CLI) | payer OTHER ==
[~2025-04-20 14:46] MED LIST: LEVO500T91 PO; METR-344 PO
== END 2025-04-20 17:00 | disposition home or self-care (01) ==
LOC: LAB 14:46
PROVIDERS: ATTEND Internal Medicine Hematology & Oncology
DX: I10 Essential (primary) hypertension (principal); E78.5 Hyperlipidemia, unspecified
CPT/HCPCS: 82270

== ENCOUNTER 2025-05-02 10:50 | Outpatient (CLI) | payer OTHER | END 2025-05-02 17:00 | disposition home or self-care (01) | LOC: LAB 10:50 | DX: N84.1 Polyp of cervix uteri (principal) ==